=== PATIENT | female | born 1995 | race Caucasian/White ===

== ENCOUNTER 2017-04-30 11:13 | Emergency (ER) | payer BC, MEDICAID ==
[2017-04-30 11:46] VITALS: BP 107/71
--- NOTE | 2017-04-30 11:50 | UC ---
Throat Pain/Nasal Ephraim HPI - HPI Summary HPI Summary: Pt c/o sudden onset of sore throat, chills, SCHULER and generalized malaise X 1 day. - History of Current Complaint Stated Complaint: SORE THROAT HEADACHE CHILLS Time Seen by Provider: 04/30/17 11:43 Hx Obtained From: Patient Hx Last Menstrual Period: 04/20/17 ?: No Onset/Duration: Sudden Onset, Lasting Hours, Still Present Severity: Moderate Associated Signs & Symptoms: Positive: Dysphagia - Epiglottits Risk Factors Epiglottis Risk Factors: Negative - Allergies/Home Medications Allergies/Adverse Reactions: Allergies Allergy/AdvReac Type Severity Reaction Status Date / Time No Known Allergies Allergy Verified 04/30/17 11:46 PMH/Surg Hx/FS Hx/Imm Hx Previously Healthy: Yes - Surgical History Surgical History: None - Family History Known Family History: Positive: Cardiac Disease - Social History Lives: With Family Alcohol Use: Rare Substance Use Type: None Smoking Status (MU): Never Smoked Tobacco Have You Smoked in the Last Year: No Review of Systems Constitutional: Chills, Fatigue Skin: Negative Eyes: Negative ENT: Sore Throat Respiratory: Negative Cardiovascular: Negative Gastrointestinal: Abdominal Pain Genitourinary: Negative Motor: Negative Neurovascular: Negative Musculoskeletal: Myalgia Neurological: Negative Psychological: Negative Is Patient Immunocompromised?: No All Other Systems Reviewed And Are Negative: Yes Physical Exam Triage Information Reviewed: Yes Appearance: Ill-Appearing Vital Signs: Initial Vital Signs Temp 98.9 F 04/30/17 11:43 Pulse 108 04/30/17 11:43 Resp 16 04/30/17 11:43 BP 107/71 04/30/17 11:43 Pulse Ox 100 04/30/17 11:43 Vital Signs Reviewed: Yes Eye Exam: Normal ENT: Positive: Pharyngeal erythema Dental Exam: Normal Neck exam: Normal Respiratory Exam: Normal Cardiovascular Exam: Normal Abdominal Exam: Normal Musculoskeletal Exam: Normal Neurological Exam: Normal Psychological Exam: Normal Skin Exam: Normal Throat Pain/Nasal Course/Dx - Differential Dx/Diagnosis Differential Diagnosis/HQI/PQRI: Influenza, Pharyngitis, URI Provider Diagnoses: Pharyngitis Discharge - Discharge Plan Condition: Stable Disposition: HOME Prescriptions: Penicillin VK 500 MG TAB(NF) [Penicillin VK 500 mg Tab] 500 mg PO Q12H #20 tab Patient Education Materials: Pharyngitis (ED), Tachycardia (ED) Forms: *Work Release Referrals: [facility] [place] [facility] [Outside] No Primary Care Phys,NOPCP [Primary Care Provider] - Additional Instructions: Please follow up with your PCP or return to clinic as needed. If symptoms wrosen please seek care immediately at the closest Emergency room.
== END 2017-04-30 12:27 | disposition home or self-care (01) ==
LOC: UCCORT 11:13
DX: J02.9 Acute pharyngitis, unspecified (principal)
CPT/HCPCS: 87502; 87651; 99212; G0463

== ENCOUNTER 2019-01-08 08:59 | Emergency (ER) | payer OTHER ==
[2019-01-08 09:27] VITALS: BP 121/63
[2019-01-08] MEDS ORDERED: Acetaminophen TAB* 325 MG PO ONE (09:51)
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
== END 2019-01-08 10:13 | disposition home or self-care (01) ==
LOC: UCCORT 08:59
DX: S06.0X0A Concussion without loss of consciousness, initial encounter (principal); W50.0XXA Accidental hit or strike by another person, initial encounter; Y92.9 Unspecified place or not applicable
CPT/HCPCS: 99212; A9270-GY; G0463